=== PATIENT | male | born 1960 | race Caucasian/White ===

== ENCOUNTER 2021-10-15 07:19 | Inpatient (IN) | payer BC, SELFPAY ==
[2021-10-15] VITALS (8 sets, daily range): BP systolic 110–139; BP diastolic 70–82; PULSE 53–77; RESP 12–20; TEMP 36.1–37.2; O2SAT 94–99; BMI 27.8
--- NOTE | ~2021-10-15 | US_ITS ---
EXAMINATION: US VENOUS ULTRASOUND WITH DOPPLER LOWER EXTREMITY, BILATERAL CLINICAL INFORMATION: Rule out DVT. No venous thromboembolism. COMPARISON: None TECHNIQUE: Ultrasound of the deep veins is performed from the hip to the calf with compression sonography and color and pulse Doppler assessment. Spectral analysis with color-flow imaging is performed. FINDINGS: RIGHT: There is noncompressible, echogenic thrombus within the right femoral vein (proximal, middle, and distal segments) as well as the right popliteal and posterior tibial veins. The peroneal veins are not well seen due to the degree of capsular swelling. Blood flow is seen around the nonocclusive thrombus in these veins on color Doppler. The venous waveforms of around these areas of echogenic thrombus is blunted as a result. There is significant subcutaneous edema in the calf with soft tissue swelling. LEFT: There is normal venous compression and respiratory variation and augmented flow. The visualized common femoral vein, superficial femoral vein, profunda femoral vein, popliteal vein, and the trifurcation region shows no evidence of deep venous thrombosis. There is no significant popliteal fossa cyst. US/US venous duplex LE BI IMPRESSION: Acute nonocclusive deep vein thrombus in right lower extremity from the femoral vein through the posterior tibial vein. No evidence of DVT in the left lower extremity. This critical result was discussed by telephone with Dr Kruger on 10/15/2021 at 11:30 AM.
--- NOTE | ~2021-10-15 | XR_ITS ---
EXAMINATION: XR CHEST CLINICAL INFORMATION: Pulmonary embolism. Pleuritic chest pain. COMPARISON: Previous chest x-ray and chest CTA 10/15/2021 TECHNIQUE: Frontal view of the chest was obtained. FINDINGS: The cardiac and mediastinal contours are stable. There is bibasilar atelectasis or infiltrate. This appears increased from previous exams. There may be emphysematous change seen at the apices, particularly on the right. There is no pleural effusion or pneumothorax. There are degenerative changes of the spine. XR/XR chest 1V IMPRESSION: Increasing atelectasis or small infiltrates at the lung bases from 10/15/2021 exams.
--- NOTE | ~2021-10-15 | XR_ITS ---
EXAMINATION: XR CHEST CLINICAL INFORMATION: Right-sided pleuritic chest pain. COMPARISON: None TECHNIQUE: Frontal view of the chest was obtained. FINDINGS: Cardiac silhouette is normal in size. The lungs are adequately aerated. Subtle linear opacities of the right lung base, nonspecific. No pleural effusion. No pneumothorax. Degenerative changes of the spine. XR/XR chest 1V IMPRESSION: Subtle linear opacities of the right lung base are nonspecific but suspected to represent atelectasis. A subtle viral process is not entirely excluded. Unfortunately, there are no prior images available for comparison. Clinical correlation recommended.
--- NOTE | ~2021-10-15 | CT_ITS ---
EXAMINATION: CT ANGIOGRAM OF THE CHEST WITH AND WITHOUT CONTRAST (CT PULMONARY ANGIOGRAM FOR PE) CLINICAL INFORMATION: Reason for Exam rt pleuritic chest pain, positive d-diner COMPARISON: 10/15/2021 TECHNIQUE: Prior to contrast administration, noncontrast localization images were obtained. Subsequently, multidetector volumetric imaging was performed from the thoracic inlet to below the diaphragms following the administration of 71 mL Omnipaque 350 intravenous contrast. No contrast reaction reported Sagittal, coronal, and MIP oblique sagittal reformatted images were obtained on the CT workstation, uploaded to PACS, and reviewed. This CT examination was performed using dose optimization techniques as appropriate, variously including the following: *Automated exposure control *Adjustment of mA and/or kV according to patient size (this includes techniques or standardized protocols for targeted exams where dose is matched to indication/reason for exam; i.e. extremities or head) *Use of iterative reconstruction technique Total exam dose-length product 202 mGy-cm FINDINGS: QUALITY OF STUDY/CONTRAST BOLUS: Satisfactory. PULMONARY ARTERIES: There is a near occlusive thrombus within the pulmonary artery to the lateral basilar segment of the right lower lobe . No additional pulmonary emboli are identified on these images to the proximal subsegmental level. Main pulmonary arteries are normal in caliber. THORACIC AORTA: Calcific atherosclerosis is present in the thoracic aorta. No aneurysm or dissection. No intramural hematoma. LUNG: Centrilobular and paraseptal emphysema is present in both lungs, most notably at the upper lobes. There is developing groundglass consolidation in the anterolateral aspect of the right lower lobe which may correspond to a developing infarct. Dependent atelectasis is present in the lower lobes bilaterally. There is a partially calcified 8 mm pulmonary nodule in the right suprahilar region on image 73/218 of series 5 which may correspond to a granuloma or hamartoma. No follow-up is necessary. A 7 mm nodule along the left major fissure peripherally has an angular morphology and likely corresponds to a intrapulmonary lymph node. There is a similar 5 mm pulmonary nodule at the medial aspect of the right major fissure on image 125 of series 5, also likely corresponding to an intrapulmonary lymph node. No routine follow-up is necessary for perifissural nodules. PLEURA: Trace right pleural effusion. No pneumothorax MEDIASTINUM: RV of the ratio measures 1.18. There is mild flattening of the interventricular septum. Atherosclerotic calcifications are present at the coronary arteries. No mediastinal adenopathy. There are multiple prominent bilateral hilar lymph nodes measuring of 2.9 cm in short axis without appreciable adenopathy. No mediastinal adenopathy. CHEST WALL/AXILLA: No axillary or internal mammary lymphadenopathy. OSSEOUS STRUCTURES: No acute osseous abnormalities. Moderate multilevel degenerative spondylosis. UPPER ABDOMEN: Unremarkable. No reflux of contrast into the hepatic veins to suggest elevated right heart pressures. CT/CT angio chest PE protocol IMPRESSION: 1. Acute segmental pulmonary embolism in the right lower lobe. Subtle peripheral wedge-shaped consolidation in this region likely corresponds to a developing pulmonary infarct. Trace right pleural effusion. 2. RV/LV ratio of 1.18 with slight bowing of the interventricular septum as can be seen with right heart strain. No other findings heart strain. 3. Mild to moderate centrilobular and paraseptal pulmonary emphysema. VTE: positive This critical result was discussed by telephone with Dr Kruger on 10/15/2021 at 10:03 AM. The Fleischner criteria were followed for this study
--- NOTE | 2021-10-15 07:34 | ECG_ITS ---
Test Reason : CHEST PAIN Blood Pressure : / mmHG Vent. Rate : 062 BPM Atrial Rate : 365 BPM P-R Int : 000 ms QRS Dur : 082 ms QT Int : 434 ms P-R-T Axes : 049 018 044 degrees QTc Int : 440 ms Poor data quality Normal sinus rhythm No previous ECGs available Referred By: John Kruger Electronically Signed By:TRAE AHN MD
--- NOTE | 2021-10-15 07:35 | ED_ITS ---
HPI - General Adult General Chief complaint: General Medical Stated complaint: diff breathing Time Seen by Provider: 10/15/21 07:32 Source: patient Mode of arrival: ambulatory Limitations: no limitations History of Present Illness HPI narrative: This is a pleasant 61 years old patient presented to the emergency department with a chief complaint of a right pleuritic chest pain since yesterday. He can clearly localize the pain in the right lower ribs laterally get worse taking a deep breath. Denies any exertional symptoms diet for disease is a smoker Onset (ago): day(s) (1) Location: chest Radiation: other (pleuritic) Severity: moderate Quality: sharp Pain Consistency: constant Relieving factors: none Exacerbating factors: none Related Data Home Medications Medication Instructions Recorded Confirmed aspirin 325 mg tablet 325 mg PO DAILY 10/15/21 10/15/21 valsartan 160 1 tab PO BEDTIME 10/15/21 10/15/21 mg-hydrochlorothiazide 12.5 mg tablet Allergies Allergy/AdvReac Type Severity Reaction Status Date / Time No Known Allergies Allergy Verified 10/15/21 07:23 Review of Systems Verdana 4l Constitutional: Verdana 4d Constitutional: Verdana 4d Verdana 4d Reports no additional constitutional complaints Verdana 4l ENT: Verdana 4d Reports system reviewed and no additional complaints, except as documented Verdana 4l Cardiovascular: Verdana 4d Cardiovascular: Verdana 4d Verdana 4d Reports no additional cardiovascular complaints Verdana 4l Musculoskeletal: Verdana 4d Musculoskeletal: Verdana 4d Verdana 4d Reports no additional musculoskeletal complaints [facility] Past Medical History Medical History HTN (hypertension) Social History Social History Alcohol intake: current Patient Tobacco Use Status: Current everyday Tobacco user Use of substances other than those prescribed or required for medical reasons: No Advance Directives: No Advance Directives Information Provided: No Physical Exam Verdana 4l Vital Signs: Verdana 4d Verdana 4d Vital Signs: Verdana 4d Verdana 4Bd Last Vital Signs Verdana 4d Automatic Drilling Machine Operator New 4d Automatic Drilling Machine Operator New 4d Temp 98.5 F 10/15/21 12:32 Automatic Drilling Machine Operator New 4d Pulse 53 10/15/21 12:32 Automatic Drilling Machine Operator New 4d Resp 18 10/15/21 12:32 BP 128/70 10/15/21 12:32 Pulse Ox 96 10/15/21 12:32 BMI result Body Mass Index 27.8 Const: General: no acute distress Nutritional Appearance: well nourished Orientation/consciousness: patient oriented x3 HENMT: Head: Yes normal to inspection Face and sinus: Yes normal facial exam Mouth: Normal oral and palatal mucosa present Neck: Neck: Yes normal visual inspection Chest: Chest palpation & inspection: normal inspection of the chest Resp: Effort & Inspection: normal respiratory effort Cardio: Jugular venous distension: no JVD Rate: regular rate Rhythm: regular rhythm GI: Inspection: Yes normal to inspection Palpation (GI): Soft to palpation Au scultation: normal bowel sounds : General: Yes no CVA tenderness Back/Spine/Pelvis: Back: no CVA tenderness Neuro: General: patient oriented x3 Course Reevaluation(s) Reevaluation #1: CTA positive for Pe segmental, negative troponin, I did a bedside echo and adeno CA by echo right side heart strain. Clinically the patient is doing well no tachycardia no hypoxia. We will admit the patient for IV heparin I spoke with the hospitalist Dr Atkins Medical Decision Making Lab Data Result diagrams: 10/15/21 12:00 10/15/21 07:54 Labs: Lab Results 10/15/21 10/15/21 10/15/21 Range/Units 07:54 07:54 07:54 WBC 9.3 (4.8-10.8) X10*3/uL RBC 4.53 L (4.60-5.80) X10*6/uL Hgb 16.1 (14.0-18.0) g/dl Hct 45.7 (42.0-52.0) % MCV 100.9 H (80.0-98.0) fL MCH 35.5 H (27.0-33.0) pg MCHC 35.2 (31.0-36.0) g/dl RDW 16.3 H (11.0-16.0) % Plt Count 196 (160-400) X10*3/uL MPV 9.1 L (9.4-12.4) fL Immature Gran % (Auto) 0.3 (0.0-0.4) % Neut % (Auto) 74.1 H (45-73) % Lymph % (Auto) 16.0 L (20-40) % [place] % (Auto) 8.0 (2-11) % Eos % (Auto) 1.4 (0-4) % Baso % (Auto) 0.2 (0-2) % Lymph # (Auto) 1.5 (1.2-4.9) X10*3/uL [place] # (Auto) 0.7 (0.1-1.2) X10*3/uL Eos # (Auto) 0.1 (0.0-0.4) X10*3/uL Baso # (Auto) 0.0 (0.0-0.2) X10*3/uL Abs Immat Gran (auto) 0.03 (0.00-0.03) X10*3/uL Absolute Neuts (auto) 6.9 (2.0-8.3) x10*3/uL Absolute Nucleated RBC 0.000 (0.0-0.012) X10*3/uL Nucleated RBC % (auto) 0.0 (0.0-0.2) /100WBC PT 13.0 (9.9-13.0) SEC INR 1.1 (0.9-1.1) PTT (Heparin Protocol) 32.0 L (53-77.9) SEC D-Dimer High Sensitivty 407 NG/ML Sodium 139 (135-145) mmol/L Potassium 4.6 (3.3-5.1) mmol/L Chloride 107 (96-108) mmol/L Carbon Dioxide 22 (22-29) mmol/L Anion Gap 15 (12-20) BUN 12 (9-16) mg/dL Creatinine 0.95 (0.5-1.4) mg/dL Estim Creat Clear Calc 94.0 Estimated GFR > 60 Random Glucose 94 (60-115) mg/dL Calcium 9.2 (8.4-10.2) mg/dL Total Bilirubin 0.9 (0.0-1.0) mg/dL AST 14 (5-37) U/L ALT 13 (0-40) U/L Alkaline Phosphatase 70 (39-117) U/L Troponin I High Sens (<3.5-35.0) ng/L B-Natriuretic Peptide (<100) pg/mL Total Protein 6.7 (6.5-8.0) g/dL Albumin 3.7 (3.5-5.0) g/dL COVID-19 ([facility]) (Negative) COVID-19 Clin Com 10/15/21 10/15/21 Range/Units 07:54 07:54 WBC (4.8-10.8) X10*3/uL RBC (4.60-5.80) X10*6/uL Hgb (14.0-18.0) g/dl Hct (42.0-52.0) % MCV (80.0-98.0) fL MCH (27.0-33.0) pg MCHC (31.0-36.0) g/dl RDW (11.0-16.0) % Plt Count (160-400) X10*3/uL MPV (9.4-12.4) fL Immature Gran % (Auto) (0.0-0.4) % Neut % (Auto) (45-73) % Lymph % (Auto) (20-40) % [place] % (Auto) (2-11) % Eos % (Auto) (0-4) % Baso % (Auto) (0-2) % Lymph # (Auto) (1.2-4.9) X10*3/uL [place] # (Auto) (0.1-1.2) X10*3/uL Eos # (Auto) (0.0-0.4) X10*3/uL Baso # (Auto) (0.0-0.2) X10*3/uL Abs Immat Gran (auto) (0.00-0.03) X10*3/uL Absolute Neuts (auto) (2.0-8.3) x10*3/uL Absolute Nucleated RBC (0.0-0.012) X10*3/uL Nucleated RBC % (auto) (0.0-0.2) /100WBC PT (9.9-13.0) SEC INR (0.9-1.1) PTT (Heparin Protocol) (53-77.9) SEC D-Dimer High Sensitivty NG/ML Sodium (135-145) mmol/L Potassium (3.3-5.1) mmol/L Chloride (96-108) mmol/L Carbon Dioxide (22-29) mmol/L Anion Gap (12-20) BUN (9-16) mg/dL Creatinine (0.5-1.4) mg/dL Estim Creat Clear Calc Estimated GFR Random Glucose (60-115) mg/dL Calcium (8.4-10.2) mg/dL Total Bilirubin (0.0-1.0) mg/dL AST (5-37) U/L ALT (0-40) U/L Alkaline Phosphatase (39-117) U/L Troponin I High Sens 4.1 (<3.5-35.0) ng/L B-Natriuretic Peptide 24 (<100) pg/mL Total Protein (6.5-8.0) g/dL Albumin (3.5-5.0) g/dL COVID-19 ([facility]) Negative (Negative) COVID-19 Clin Com See Note Imaging Data CT scan - chest: Radiologist's impression: te osseous abnormalities. Moderate multilevel degenerative spondylosis.? UPPER ABDOMEN: Unremarkable.? No reflux of contrast into the hepatic veins to suggest elevated right heart pressures. CT/CT angio chest PE protocol IMPRESSION: 1. Acute segmental pulmonary embolism in the right lower lobe. Subtle peripheral wedge-shaped consolidation in this region likely corresponds to a developing pulmonary infarct. Trace right pleural effusion. 2. RV/LV ratio of 1.18 with slight bowing of the interventricular septum as can be seen with right heart strain. No other findings heart strain. 3. Mild to moderate centrilobular and paraseptal pulmonary emphysema. ? VTE: positive ? This critical result was discussed by telephone with? Dr Kruger on 10/15/2021 at 10:03 AM. ? The Fleischner criteria were followed for this study Dictated By: RENETTA ALEXIS MD Signed By: <Electronically signed by RENETTA ALEXIS MD in OV> 10/15/21 1005 ECG Data Pacemaker model: NSR [address]-t changes artifacts Discharge Plan Discharge Clinical Impression: Pulmonary embolism, Dvt femoral (deep venous thrombosis) Patient Disposition: Admitted As Inpatient
[2021-10-15 08:02] LABS: MANUAL DIFF FLAG NO
[2021-10-15 08:08] LABS: Basophils Percent Auto 0.2 % (0-2); Eosinophils Absolute Auto 0.1 X10*3/uL (0.0-0.4); Eosinophils Percent Auto 1.4 % (0-4); Hematocrit 45.7 % (42.0-52.0); Hemoglobin 16.1 g/dl (14.0-18.0); Imm Gran Abs Auto 0.03 X10*3/uL (0.00-0.03); Imm Gran Pct Auto 0.3 % (0.0-0.4); Lymphocytes Absolute Auto 1.5 X10*3/uL (1.2-4.9); Mean Corpuscular HGB Conc 35.2 g/dl (31.0-36.0); Mean Corpuscular Hemoglobin 35.5 pg (27.0-33.0); Mean Corpuscular Volume 100.9 fL (80.0-98.0); Mean Platelet Volume 9.1 fL (9.4-12.4); Monocytes Absolute Auto 0.7 X10*3/uL (0.1-1.2); Neutrophils Absolute Auto 6.9 x10*3/uL (2.0-8.3); Neutrophils Percent Auto 74.1 % (45-73); Platelet Count 196 X10*3/uL (160-400); Red Blood Count 4.53 X10*6/uL (4.60-5.80); Red Cell Distribution Width 16.3 % (11.0-16.0); White Blood Count 9.3 X10*3/uL (4.8-10.8)
[2021-10-15] MEDS: Ketorolac Tromethamine 30 MG/ML VIAL 15 MG IVPUSH (08:11)
[2021-10-15 08:21] LABS: Alanine Aminotransferase 13 U/L (0-40); Albumin Level 3.7 g/dL (3.5-5.0); Alkaline Phosphatase 70 U/L (39-117); Anion Gap 15 (12-20); Aspartate Amino Transferase 14 U/L (5-37); Bilirubin Total 0.9 mg/dL (0.0-1.0); Blood Urea Nitrogen 12 mg/dL (9-16); Calcium 9.2 mg/dL (8.4-10.2); Carbon Dioxide 22 mmol/L (22-29); Chloride 107 mmol/L (96-108); Estimated Glomerular Filt Rate > 60; Glucose Random 94 mg/dL (60-115); Potassium 4.6 mmol/L (3.3-5.1); Sodium 139 mmol/L (135-145); Total Protein 6.7 g/dL (6.5-8.0)
[2021-10-15 08:25] LABS: D Dimer High Sensitivity 407 NG/ML
[2021-10-15 08:27] LABS: Troponin-I High Sensitivity 4.1 ng/L (<3.5-35.0)
--- NOTE | 2021-10-15 08:34 | ECG_ITS ---
Test Reason : R RIB PAIN Blood Pressure : / mmHG Vent. Rate : 061 BPM Atrial Rate : 061 BPM P-R Int : 148 ms QRS Dur : 090 ms QT Int : 442 ms P-R-T Axes : 041 003 038 degrees QTc Int : 444 ms Artifact in tracing Normal sinus rhythm Normal ECG When compared with ECG of 15-OCT-2021 08:19, No significant changes seen Referred By: Devin Atkins Electronically Signed By:CHAPIS RUBIO
[2021-10-15 08:37] LABS: COVID-19 Test Negative (Negative)
--- NOTE | 2021-10-15 09:03 | PC.NURSE ---
pt reports 10/10 sharp right lower rib pain that worsens when he breaths. pt denies any cardiac history. no sob, no headache, no dizziness, no nausea/vomiting/diarrhea. 20 gauge iiv placed LAC, labs drawn, pain med given as documented. pt currently in CT
[2021-10-15] MEDS: iohexoL 350 MG/ML 100 ML INFUS..BTL IV (09:19)
[2021-10-15 10:38] LABS: INTERNATIONAL NORM RATIO 1.1 (0.9-1.1)
[2021-10-15 10:46] LABS: B Type Natriuretic Peptide 24 pg/mL (<100)
[2021-10-15] MEDS: Heparin Sodium,Porcine 5,000 UNIT/ML VIAL 7300 UNIT IVPUSH (10:53)
--- NOTE | 2021-10-15 11:01 | P.HPHOSP_ITS ---
History of Present Illness Date of Service: 10/15/21 Attending physician on admission: Devin Atkins Chief Complaint: chest pain 61-year-old male history of 45 year pack smoking, hypertension, history of pneumonia and followed by DVT 2 years ago in [facility]. He said when he got DVT he was managed outpatient for as per his PCP and vascular and was given six- month off anticoagulation and afterwards told to take aspirin daily. Yesterday he started having sudden right-sided chest pain pleuritic, denies any pressure, not radiating, constant pain -so decided to come to the hospital. denies any shortness of breath even with exertion currently. Denies any new complaint of abdominal pain or fever or chills or nausea or vomiting Denies any cough Denies any weakness or numbness. Lab imaging imaging reviewed: WBC 9.1, hemoglobin 16.1 platelets 196 BMP seems fine, troponin negative, BNP negative, bedside echo as per ED physician seems less likely right-sidedstrain. CT/CT angio chest PE protocol IMPRESSION: 1. Acute segmental pulmonary embolism in the right lower lobe. Subtle peripheral wedge-shaped consolidation in this region likely corresponds to a developing pulmonary infarct. Trace right pleural effusion. 2. RV/LV ratio of 1.18 with slight bowing of the interventricular septum as can be seen with right heart strain. No other findings heart strain. 3. Mild to moderate centrilobular and paraseptal pulmonary emphysema. ? VTE: positive ekg -seems nsr Review of Systems Verdana 4l Review of Systems: Verdana 4d as above. Verdana 4d Yes Verdana 4d all other systems are reviewed and are negative [facility] Medical History HTN (hypertension) Pertinent family history: he denies any family history of pulmonary embolism, any heart disease or hypertension. Or any hematological disease in his family. Social History Household Members: Significant Other Housing: House Do you presently have visiting nurse or other home services: No Alcohol intake: current Patient Tobacco Use Status: Current everyday Tobacco user Tobacco use type: Cigarette e-Cigarette/Vaping Use: Never Used Second Hand Smoke Exposure: No service: No Current occupational status: employed Meds Allergies Allergy/AdvReac Type Severity Reaction Status Date / Time No Known Allergies Allergy Verified 10/15/21 07:23 Active Medications: Current Medications Heparin Sodium (Porcine) (Heparin Sodium,Porcine 5,000 Unit/Ml Vial) 3,600 unit 40 unit/kg (3600 unit) IVPUSH PROTOCOL BOLUS PRN; Protocol PRN Reason: 40 unit/kg - Heparin Protocol Heparin Sodium (Porcine) (Heparin Sodium,Porcine 5,000 Unit/Ml Vial) 7,300 unit 80 unit/kg (7300 unit) IVPUSH PROTOCOL BOLUS PRN; Protocol PRN Reason: 80 unit/kg - Heparin Protocol Heparin Sodium/Sodium Chloride () 25,000 unit in 250 mls @ 0 mls/hr IVCONT .Q0M [facility]; Protocol Pharmacy Consult (Consult Rx Perform Med Rec) 1 each MISCELLANE ONCE PRN PRN Reason: Consult order Sodium Chloride (0.9 % Sodium Chloride Flush 3 Ml Syringe) 3 ml IVFLUSH QSHIFT [facility] Home Medications Medication Instructions Recorded Confirmed Last Taken Type aspirin 325 mg 325 mg PO DAILY 10/15/21 10/15/21 Unknown History tablet valsartan 160 1 tab PO BEDTIME 10/15/21 10/15/21 10/14/21 History mg-hydrochlorothi azide 12.5 mg tablet Physical Exam Verdana 4l Vital Signs and Narrative: Verdana 4d Verdana 4d Vital Signs: Verdana 4d Verdana 4Bd Last Vital Signs Verdana 4d Linemarker New 4d Linemarker New 4d Temp 97 F 10/15/21 07:23 Linemarker New 4d Pulse 70 10/15/21 08:00 Linemarker New 4d Resp 20 10/15/21 08:00 BP 121/75 10/15/21 08:00 Pulse Ox 98 10/15/21 08:00 BMI result Body Mass Index 27.8 physical exam: Appearance: Alert.? Oriented X3.? not in distress.? Eyes: Pupils equal, round and reactive to light.? Sclera nonicteric.? ENT: Pharynx normal.? Moist mucous membranes. cvs: rrr, [id number] , no murmur res: clear to auscultation ,no rhonchii or wheezing abd: no rebound or guarding ,nt, bs present. ext pulses present , no cyanosis . neuro: axo3 , nonfocal. Results Labs CBC and Chem 7: 10/17/21 05:51 10/17/21 05:51 Labs: Laboratory Results - last 24 hr 10/15/21 10/15/21 10/15/21 07:54 07:54 07:54 MCV 100.9 H MCH 35.5 H MCHC 35.2 RDW 16.3 H Plt Count 196 MPV 9.1 L Immature Gran % (Auto) 0.3 Neut % (Auto) 74.1 H Lymph % (Auto) 16.0 L [place] % (Auto) 8.0 Eos % (Auto) 1.4 Baso % (Auto) 0.2 Lymph # (Auto) 1.5 [place] # (Auto) 0.7 Eos # (Auto) 0.1 Baso # (Auto) 0.0 Abs Immat Gran (auto) 0.03 Absolute Neuts (auto) 6.9 Absolute Nucleated RBC 0.000 Nucleated RBC % (auto) 0.0 PT 13.0 INR 1.1 PTT (Heparin Protocol) 32.0 L D-Dimer High Sensitivty 407 Anion Gap 15 Estim Creat Clear Calc 94.0 Estimated GFR > 60 Random Glucose 94 Calcium 9.2 Total Bilirubin 0.9 AST 14 ALT 13 Alkaline Phosphatase 70 Troponin I High Sens B-Natriuretic Peptide Total Protein 6.7 Albumin 3.7 COVID-19 ([facility]) COVID-19 Clin Com 10/15/21 10/15/21 07:54 07:54 MCV MCH MCHC RDW Plt Count MPV Immature Gran % (Auto) Neut % (Auto) Lymph % (Auto) [place] % (Auto) Eos % (Auto) Baso % (Auto) Lymph # (Auto) [place] # (Auto) Eos # (Auto) Baso # (Auto) Abs Immat Gran (auto) Absolute Neuts (auto) Absolute Nucleated RBC Nucleated RBC % (auto) PT INR PTT (Heparin Protocol) D-Dimer High Sensitivty Anion Gap Estim Creat Clear Calc Estimated GFR Random Glucose Calcium Total Bilirubin AST ALT Alkaline Phosphatase Troponin I High Sens 4.1 B-Natriuretic Peptide 24 Total Protein Albumin COVID-19 ([facility]) Negative COVID-19 Clin Com See Note Imaging Radiologist's Impressions: Impressions Chest X-Ray 10/15/21 08:15 IMPRESSION: Subtle linear opacities of the right lung base are nonspecific but suspected to represent atelectasis. A subtle viral process is not entirely excluded. Unfortunately, there are no prior images available for comparison. Clinical correlation recommended. Chest CTA 10/15/21 09:19 IMPRESSION: 1. Acute segmental pulmonary embolism in the right lower lobe. Subtle peripheral wedge-shaped consolidation in this region likely corresponds to a developing pulmonary infarct. Trace right pleural effusion. 2. RV/LV ratio of 1.18 with slight bowing of the interventricular septum as can be seen with right heart strain. No other findings heart strain. 3. Mild to moderate centrilobular and paraseptal pulmonary emphysema. VTE: positive This critical result was discussed by telephone with Dr Kruger on 10/15/2021 at 10:03 AM. The Fleischner criteria were followed for this study Assessment and Plan (1) Hx of deep venous thrombosis: Status: Acute (2) Smoker: Status: Acute (3) Chest pain: Status: Acute Plan 61-year-old male smoker and hypertension history: came with right-sided pl euritic chest pain, Found to have pulmonary embolism. 1. Pulmonary embolism: as history of DVT right lower ext 2 years ago which was treated with anticoagulation for six-month. Troponin, BNP negative, EKG seems NSR, bedside echo by ED physician less likely right-sided strain. Venous duplex of lower extremities pending Continue IV heparin drip in ED, IV morphine for pain control, lidocaine patch. 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 2. Hypertension: Continue home medication medical reconciliation pending 3. smoker: nicotine patch added. DVT prophylaxis: SubQ heparin above management discussed with the patient in detail length and understand and in agreement with the above plan, time spent 70 minute. Patient full code. Quality Stroke Does the patient have a stroke diagnosis?: No VTE Prior VTE?: No VTE Risk Level:: Medical - moderate - high VTE Device Contraindication: N/A - Device Ordered VTE Drug Contraindication: N/A - Med Ordered
--- NOTE | 2021-10-15 11:02 | PHA.MEDREC ---
MED REC COMPLETE, NO ISSUES Pharmacy Consult ? Medication Reconciliation Pharmacy has completed the medication reconciliation.
[2021-10-15] MEDS: Heparin Sodium,Porcine/1/2NS 25,000 UNIT/250 ML IV.SOLN 12.7 UNIT IVCONT (11:03)
--- NOTE | 2021-10-15 11:24 | PC.NURSE ---
Heparin bolus given and Heparin drip started at 14u/kg/hr. Pt 13.0, INR 1.1. Repeat PTT due at 1705. cardiac catheterization technician at bedside. pt admitted, awaiting bed assignment. will continue to monitor.
[2021-10-15 12:07] LABS: Hemoglobin 15.2 g/dl (14.0-18.0); Mean Corpuscular HGB Conc 34.5 g/dl (31.0-36.0); Mean Corpuscular Volume 101.4 fL (80.0-98.0); Mean Platelet Volume 9.5 fL (9.4-12.4); Platelet Count 183 X10*3/uL (160-400); Red Blood Count 4.34 X10*6/uL (4.60-5.80); Red Cell Distribution Width 16.3 % (11.0-16.0); White Blood Count 10.9 X10*3/uL (4.8-10.8)
[2021-10-15] MEDS: Lidocaine 4 % Patch ADH..PATCH 1 PATCH TRANSDERMA (12:39)
[2021-10-15] MEDS: Nicotine 21 MG PATCH.TD24 TRANSDERMA (12:40)
[2021-10-15] MEDS: Morphine Sulfate 2 MG/ML CARTRIDGE IVPUSH ×2 (17:18→20:16)
[2021-10-15 17:42] LABS: PTT Heparin Drip 66.8 SEC (53-77.9)
--- NOTE | 2021-10-15 17:55 | PC.NURSE ---
repeat PTT 66.8. no dose change per protocol. pt alert and oriented, vss. awaiting bed assignment.
--- NOTE | 2021-10-15 20:02 | PC.NURSE ---
pt resting on stretcher in nad, breathing with ease on RA, vss. pt aaox4, reports R lateral chest pain, to be medicated with prn morphine when able per orders pt agreeable to plan for pain control and admission for further mgmt. heparin gtt infusing as documented, repeat ptt hd due at 2300 pt placed on bedside groundwater monitoring technician, nsr. stretcher low locked rails raised call fields within reach, urinal at bedside.
--- NOTE | 2021-10-15 20:09 | PC.NURSE ---
Report called to CHARLEE Brink in Overflow unit.
--- NOTE | 2021-10-15 20:47 | PM.HEMONCCN ---
Subjective - Subjective Chief complaint: pulmonary embolism Patient: new to practice Consult date: 10/15/21 Primary Care Provider: Sebastián Garduno MD HPI - Consult Narrative Reason for consult: pulmonary embolism Narrative: Antony Lopez is a 61 year old male with a history of right leg dvt in 1999 now presenting to the ER with pleuritic chest pain from a PE. He is on IV heparin infusio lelo present. Review of Systems - Constitutional Reports lack of energy - ENT Reports other - Cardiovascular Reports chest pain - Respiratory Reports dyspnea on exertion - Gastrointestinal Reports other - Genitourinary Genitourinary: Reports other - Integumentary/Breasts Skin/Breast: Reports other [facility] Medical History: Medical History (Last Reviewed 10/15/21 @ 11:09 by Devin Atkins MD) HTN (hypertension) Social History: Social History (Last Reviewed 10/15/21 @ 11:10 by Devin Atkins MD) Tobacco History: Patient Tobacco Use Status: Current everyday Tobacco Substance Use History: Use of substances other than those prescribed or required for medical reasons: No Advance Directives: Advance Directives: No Advance Directives Information Provided: No Home Medications and Allergies Current Medications: Current Medications Valsartan 160 mg/ (Hydrochlorothiazide 12.5 mg) 0 mg PO BEDTIME [facility] Heparin Sodium (Porcine) (Heparin Sodium,Porcine 5,000 Unit/Ml Vial) 3,600 unit 40 unit/kg (3600 unit) IVPUSH PROTOCOL BOLUS PRN; Protocol PRN Reason: 40 unit/kg - Heparin Protocol Heparin Sodium (Porcine) (Heparin Sodium,Porcine 5,000 Unit/Ml Vial) 7,300 unit 80 unit/kg (7300 unit) IVPUSH PROTOCOL BOLUS PRN; Protocol PRN Reason: 80 unit/kg - Heparin Protocol Heparin Sodium/Sodium Chloride () 25,000 unit in 250 mls @ 0 mls/hr IVCONT .Q0M [facility]; Protocol Last Titration: 10/15/21 17:00 Dose: 14 units/kg/hr, 12.7 mls/hr Documented by: Lidocaine (Lidocaine 4 % Patch Adh..Patch) 1 patch TRANSDERMA DAILY [facility]; Protocol Last Admin: 10/15/21 12:39 Dose: 1 patch Documented by: Morphine Sulfate (Morphine Sulfate 2 Mg/Ml Cartridge) 2 mg IVPUSH Q3H PRN; Protocol PRN Reason: Pain, Mild (Pain Scale 1-3) Last Admin: 10/15/21 20:16 Dose: 2 mg Documented by: Nicotine (Nicotine 21 Mg Patch.Td24) 21 mg TRANSDERMA DAILY [facility] Last Admin: 10/15/21 12:40 Dose: 21 mg Documented by: Pharmacy Consult (Consult Rx Perform Med Rec) 1 each MISCELLANE ONCE PRN PRN Reason: Consult order Sodium Chloride (0.9 % Sodium Chloride Flush 3 Ml Syringe) 3 ml IVFLUSH QSHIFT [facility] Last Admin: 10/15/21 17:13 Dose: Not Given Documented by: Home Medications Medication Instructions Recorded Confirmed Type aspirin 325 mg tablet 325 mg PO DAILY 10/15/21 10/15/21 History valsartan 160 1 tab PO BEDTIME 10/15/21 10/15/21 History mg-hydrochlorothiazide 12.5 mg tablet Allergies Allergy/AdvReac Type Severity Reaction Status Date / Time No Known Allergies Allergy Verified 10/15/21 07:23 Physical Exam Vital signs: Vital Signs Temp 99.0 F 10/15/21 19:58 Pulse 71 10/15/21 19:58 Resp 15 10/15/21 20:16 BP 139/82 10/15/21 19:58 Pulse Ox 94 10/15/21 19:58 Intake & Output 10/15/21 10/15/21 10/16/21 06:59 18:59 06:59 Intake Total 75.565 / 75.565 Balance 75.565 / 75.565 Intake: Intake, IV Amount 75.565 / 75.565 Heparin Sodium,Porcine/1/2NS 25 75.565 / 75.565 ,000 unit In 250 ml @ Per Protocol IVCONT .Q0M [facility] Rx#: [id number] Other: Weight 90.718 kg Weight 90.718 kg - Constitutional Present: no acute distress - Routine Neck Exam Present: supple - Routine Respiratory Exam Present: decreased breath sounds - Routine Cardiovascular Exam Cardiovascular: Present: RRR - Routine Abdominal Exam Present: diminished bowel sounds - Routine Skin Exam Present: intact - Routine Neurological Exam Present: alert, oriented X3 Hem/Onc Consult Result - Labs CBC & Chem 7: 10/15/21 12:00 10/15/21 07:54 Labs: Short CBC 10/15/21 10/15/21 Range/Units 07:54 12:00 WBC 9.3 10.9 H (4.8-10.8) X10*3/uL Hgb 16.1 15.2 (14.0-18.0) g/dl Hct 45.7 44.0 (42.0-52.0) % Plt Count 196 183 (160-400) X10*3/uL BMP 10/15/21 07:54 Sodium 139 Potassium 4.6 Chloride 107 Carbon Dioxide 22 BUN 12 Creatinine 0.95 Calcium 9.2 Liver Function 10/15/21 Range/Units 07:54 Total Bilirubin 0.9 (0.0-1.0) mg/dL AST 14 (5-37) U/L ALT 13 (0-40) U/L Alkaline Phosphatase 70 (39-117) U/L Albumin 3.7 (3.5-5.0) g/dL Assessment and Plan Patient Active problem list reviewed?: Yes (1) Pulmonary embolism Status: Acute Assessment and plan: He will need a thrombophilia evaluation and exterminator helper termite anticoagulation. Would continue heparin for 48h then Eliquis. He would benefit from a Hematology consultation. - Time Spent With Patient Time Spent with Patient (in minutes): 20
[2021-10-15] MEDS: Valsartan 160 MG, hydroCHLOROthiazide 12.5 MG PO (21:19)
--- NOTE | 2021-10-16 00:16 | PC.NURSE ---
Assumed care of pt Pt resting on stretcher with yes closed Breathing even and unlabored NAD Pt medicated per NOV Pt toelrated well SR on tele Will continue to monitor
[2021-10-16 02:02] LABS: PTT Heparin Drip 50.5 SEC (53-77.9)
[2021-10-16] MEDS: Morphine Sulfate 2 MG/ML CARTRIDGE IVPUSH (02:14)
[2021-10-16] MEDS: Heparin Sodium,Porcine 5,000 UNIT/ML VIAL 3600 UNIT IVPUSH (02:47)
--- NOTE | 2021-10-16 02:50 | PC.NURSE ---
Pt PTT 50.5. Per protocol, pt given 3600 cc bolus and drip increased by 2. Pt tolerating well Will continue to monitor
[2021-10-16 04:00] VITALS: BP 113/78; PULSE 64; RESP 13; TEMP 36.7
[2021-10-16 06:28] LABS: Hematocrit 43.8 % (42.0-52.0); Mean Corpuscular HGB Conc 34.2 g/dl (31.0-36.0); Mean Corpuscular Hemoglobin 34.8 pg (27.0-33.0); Mean Corpuscular Volume 101.6 fL (80.0-98.0); Platelet Count 176 X10*3/uL (160-400); Red Blood Count 4.31 X10*6/uL (4.60-5.80); Red Cell Distribution Width 16.2 % (11.0-16.0); White Blood Count 8.8 X10*3/uL (4.8-10.8)
[2021-10-16 06:44] LABS: INTERNATIONAL NORM RATIO 1.3 (0.9-1.1); Prothrombin Time 14.6 SEC (9.9-13.0)
[2021-10-16] MEDS: Heparin Sodium,Porcine/1/2NS 25,000 UNIT/250 ML IV.SOLN 16 UNIT IVCONT ×2 (07:25→23:45)
[2021-10-16] MEDS: Nicotine 21 MG PATCH.TD24 TRANSDERMA (08:22)
[2021-10-16] MEDS: Lidocaine 4 % Patch ADH..PATCH 1 PATCH TRANSDERMA (08:23)
--- NOTE | 2021-10-16 08:59 | P.PNIM_ITS ---
Subjective Subjective Date of Service: 10/16/21 Interval History: chest pain , right leg dvt, pulm embolism Review of Systems Chest pain seems to be improving, denies any shortness of breath or abdominal pain or nausea or vomiting. 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 Oriented X3.? not in distress.? Eyes: Pupils equal, round and reactive to light.? Sclera nonicteric.? ENT: Pharynx normal.? Moist mucous membranes. cvs: rrr, [id number] , no murmur res: clear to auscultation ,no rhonchii or wheezing abd: no rebound or guarding ,nt, bs present. ext pulses present , no cyanosis . neuro: axo3 , nonfocal. Objective Data Active Medications Valsartan 160 mg/ (Hydrochlorothiazide 12.5 mg) 0 mg PO BEDTIME [facility] Last Admin: 10/15/21 21:19 Dose: 2 tablet Documented by: CARISSA Heparin Sodium (Porcine) (Heparin Sodium,Porcine 5,000 Unit/Ml Vial) 3,600 unit 40 unit/kg (3600 unit) IVPUSH PROTOCOL BOLUS PRN; Protocol PRN Reason: 40 unit/kg - Heparin Protocol Last Admin: 10/16/21 02:47 Dose: 3,600 unit Documented by: CARISSA Heparin Sodium (Porcine) (Heparin Sodium,Porcine 5,000 Unit/Ml Vial) 7,300 unit 80 unit/kg (7300 unit) IVPUSH PROTOCOL BOLUS PRN; Protocol PRN Reason: 80 unit/kg - Heparin Protocol Heparin Sodium/Sodium Chloride () 25,000 unit in 250 mls @ 0 mls/hr IVCONT .Q0M [facility]; Protocol Last Admin: 10/16/21 07:25 Dose: 17.64 units/kg/hr, 16 mls/hr Documented by: CARISSA Cosigned by: MIKE Lidocaine (Lidocaine 4 % Patch Adh..Patch) 1 patch TRANSDERMA DAILY [facility]; Protocol Last Admin: 10/16/21 08:23 Dose: 1 patch Documented by: MIKE Morphine Sulfate (Morphine Sulfate 2 Mg/Ml Cartridge) 2 mg IVPUSH Q3H PRN; Protocol PRN Reason: Pain, Mild (Pain Scale 1-3) Last Admin: 10/16/21 02:14 Dose: 2 mg Documented by: CARISSA Nicotine (Nicotine 21 Mg Patch.Td24) 21 mg TRANSDERMA DAILY [facility] Last Admin: 10/16/21 08:22 Dose: 21 mg Documented by: MIKE Pharmacy Consult (Consult Rx Perform Med Rec) 1 each MISCELLANE ONCE PRN PRN Reason: Consult order Sodium Chloride (0.9 % Sodium Chloride Flush 3 Ml Syringe) 3 ml IVFLUSH QSHIFT [facility] Last Admin: 10/16/21 07:48 Dose: Not Given Documented by: MIKE Non-Admin Reason: IV Running Labs CBC & Chem 7: 10/16/21 05:43 10/15/21 07:54 Labs: Laboratory Results - last 24 hr 10/15/21 10/15/21 10/15/21 07:54 07:54 12:00 MCV 101.4 H MCH 35.0 H MCHC 34.5 RDW 16.3 H Plt Count 183 MPV 9.5 Absolute Nucleated RBC 0.000 Nucleated RBC % (auto) 0.0 PT 13.0 INR 1.1 PTT (Heparin Protocol) 32.0 L B-Natriuretic Peptide 24 10/15/21 10/15/21 10/16/21 16:56 22:58 05:43 MCV 101.6 H MCH 34.8 H MCHC 34.2 RDW 16.2 H Plt Count 176 MPV 10.0 Absolute Nucleated RBC 0.000 Nucleated RBC % (auto) 0.0 PT INR PTT (Heparin Protocol) 66.8 D 50.5 L D B-Natriuretic Peptide 10/16/21 05:43 MCV MCH MCHC RDW Plt Count MPV Absolute Nucleated RBC Nucleated RBC % (auto) PT 14.6 H INR 1.3 H PTT (Heparin Protocol) B-Natriuretic Peptide Assessment and Plan (1) Chest pain: Status: Acute (2) Dvt femoral (deep venous thrombosis): Status: Acute (3) Pulmonary embolism: Status: Acute Plan 61-year-old male? smoker and hypertension history: came with right-sided pleur itic chest pain, Found to have pulmonary embolism. 1.? Pulmonary embolism: ?as history of DVT right lower ext 2 years ago which was treated with anticoagulation for? six-month. ? Troponin, BNP negative, EKG seems NSR, bedside echo by ED physician? less likely right-sided strain. ? Venous duplex of lower extremities-Acute nonocclusive deep vein thrombus in right lower extremity from the femoral vein through the posterior tibial vein. Continue IV heparin drip in ED, IV morphine for pain control, lidocaine patch. hematology/oncology -iv heaprin for 48 hrs ,?monitor PT PTT as per protocol, then may switch to po eliquis. ? 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 2.? Hypertension: Continue home medication 3. smoker:? nicotine patch added. ?DVT prophylaxis:? SubQ heparin Quality Stroke Does the patient have a stroke diagnosis?: No VTE Prior VTE?: No VTE Risk Level:: Medical - moderate - high VTE Device Contraindication: N/A - Device Ordered VTE Drug Contraindication: N/A - Med Ordered
[2021-10-16 09:08] LABS: PTT Heparin Drip 74.9 SEC (53-77.9)
--- NOTE | 2021-10-16 11:00 | PC.NURSE ---
pt alert and oriented, vss. lidocaine and nicotine patch applied as documented. Heparin drip running at 16u/kg/h, PTT 74.9. No dose change per policy. Pt given breakfast. Dr. Atkins at bedside. will continue to monitor.
[2021-10-16 12:04] VITALS: BP 124/81; PULSE 62; RESP 12; TEMP 36.8; O2SAT 97
--- NOTE | 2021-10-16 12:52 | MHC.CM.PN ---
CM spoke with Patient over the phone at [phone]. Patient lives in a house with his Girlfriend/HCP/Tamara and he is functionally independent and working. Home/no services is the goal for dc and CM has initiated and will follow for dc planning. PCP is Dr. Sebastián Garduno and Patient has received J&J Covid vax X1.
[2021-10-16 13:06] VITALS: BP 137/78; PULSE 68; RESP 17; O2SAT 92
[2021-10-16 16:07] LABS: PTT Heparin Drip 55.5 SEC (53-77.9)
[2021-10-16 17:59] VITALS: BP 126/86; PULSE 70; RESP 17; TEMP 37.1; O2SAT 95
--- NOTE | 2021-10-16 18:05 | PC.NURSE ---
PTT at 1530 55.5 no dose change per protocol, Heparin drip remains at 16u/kg/h. Next PTT HD will be drawn tomorrow morning. Dr. Atkins made aware. pt awaiting bed assignment. vss.
[2021-10-16] MEDS: Valsartan 160 MG, hydroCHLOROthiazide 12.5 MG PO (20:48)
[2021-10-16 20:50] VITALS: BP 108/68; PULSE 72; RESP 15; TEMP 37; O2SAT 95
[2021-10-17 00:05] VITALS: BP 113/78; PULSE 66; RESP 20; TEMP 36.8; O2SAT 94
[2021-10-17 00:09] VITALS: BMI 27.8
[2021-10-17] MEDS: Morphine Sulfate 2 MG/ML CARTRIDGE IVPUSH (00:11)
[2021-10-17] MEDS: 0.9 % Sodium Chloride Flush 3 ML SYRINGE IVFLUSH ×2 (00:17→21:41)
[2021-10-17 04:00] VITALS: BP 127/80; PULSE 67; RESP 18; TEMP 36.8; O2SAT 92
[2021-10-17 06:00] LABS: Hematocrit 44.7 % (42.0-52.0); Hemoglobin 15.7 g/dl (14.0-18.0); Mean Corpuscular HGB Conc 35.1 g/dl (31.0-36.0); Mean Corpuscular Hemoglobin 35.5 pg (27.0-33.0); Mean Corpuscular Volume 101.1 fL (80.0-98.0); Mean Platelet Volume 9.3 fL (9.4-12.4); Platelet Count 172 X10*3/uL (160-400); Red Blood Count 4.42 X10*6/uL (4.60-5.80); Red Cell Distribution Width 16.1 % (11.0-16.0); White Blood Count 8.8 X10*3/uL (4.8-10.8)
[2021-10-17 06:13] LABS: PTT Heparin Drip 52.4 SEC (53-77.9)
[2021-10-17 06:20] LABS: Anion Gap 14 (12-20); Blood Urea Nitrogen 11 mg/dL (9-16); Carbon Dioxide 20 mmol/L (22-29); Chloride 107 mmol/L (96-108); Creatinine Clr Calc Pharmacy 111.7; Estimated Glomerular Filt Rate > 60; Glucose Random 99 mg/dL (60-115); Potassium 3.9 mmol/L (3.3-5.1); Sodium 137 mmol/L (135-145)
[2021-10-17] MEDS: Heparin Sodium,Porcine 5,000 UNIT/ML VIAL 3600 UNIT IVPUSH (06:26)
[2021-10-17 07:07] VITALS: BP 121/77; PULSE 64; RESP 18; TEMP 36.6; O2SAT 94
--- NOTE | 2021-10-17 07:30 | CA_ITS ---
Transthoracic Echocardiogram Patient (Last, First, Middle): Antony Lopez D Gender: Male Date of : 1960 Age: 61 Procedure Date: 10/17/2021 Procedure Type: Transthoracic Echocardiogram Location: [facility] [place] Height: 149.86 cm Weight: 90.27 kg BSA: 1.84 m2 Heart Rate: bpm BP: 127 / 80 mmHg Stagecraft Professor: EVERARDO Referring MD: Devin Atkins MD Symptoms: pulm embolism -r/o right heart strain Study Quality: Fair ECG Rhythm: Sinus Conclusions: - The left ventricular systolic function is low normal. The calculated ejection fraction is 53% by biplane method. - Mildly increased right ventricular cavity size. There is normal right ventricular systolic function. - No obvious valvular pathology seen on this study. - There is mild dilatation of the ascending aorta measuring 4.00 cm. Findings Left Ventricle Normal left ventricular cavity size. There is mildly increased left ventricular wall thickness. The left ventricular systolic function is low normal. The calculated ejection fraction is 53% by biplane method. There is no evidence of regional wall motion abnormalities. Diastolic function is normal for age. Right Ventricle Mildly increased right ventricular cavity size. There is normal right ventricular systolic function. Atria Both atria are normal in size. Aortic Valve There is a normal trileaflet aortic valve. There is no aortic valve stenosis. There is no aortic valve regurgitation. Mitral Valve The mitral valve appears normal. There is no mitral valve regurgitation. There is no mitral valve stenosis. Pulmonic Valve The pulmonic valve was not well visualized. Tricuspid Valve Normal tricuspid valve structure. There is trace tricuspid valve regurgitation. The pulmonary artery systolic pressure is normal. Great Vessels There is mild dilatation of the ascending aorta measuring 4.00 cm. Venous The inferior vena cava is normal in size and collapses greater than 50% with inspiration. Pericardium/Pleural There is no evidence of pericardial effusion. Prior Study Comparison No prior study available for comparison. Recommendations, Care & Conclusions No obvious valvular pathology seen on this study. Measurements 2D Linear Measurements IVSd: 1.12 0.6-0.9/0.6-1.0 cm LVIDd: 5.33 3.9-5.3/4.2-5.9 cm LVIDd Index: 2.90 2.4-3.2/2.2-3.1 cm/m2 LVIDs: 3.45 2.0-3.6 cm LVPWd: 1.17 0.7-1.1 cm Ao Root: 4.10 2.1-3.5 cm LA Diam: 3.70 2.7-3.8/3.0-4.0 cm LAIDs Index: 2.01 1.5-2.3 cm/m2 LV Mass: 302.67 67-162/88-224 g LV Mass Index: 164.50 43-95/49-115 g/m2 LVOT Diam: 2.40 3.0+(-)1.3 cm 2D Systolic Function EF 4C: 53.70 >55% EF 2C: 55.00 >55% EF BiP: 53.40 >55% Mitral Valve MV Pk E: 0.48 MV PK A: 0.70 MV Decel Time: 331.00 E/A: 0.70 E'Lateral: 11.50 E'Medial: 7.18 E/E' Med: 6.70 E/E' Lat: 4.20 PHT: 97.00 MVA PHT: 2.27 Decel [place]: 1.46 Aortic Valve AoV Pk Manuel: 1.48 AoV Mn Manuel: 1.04 AoV VTI: 0.27 AoV Pk Grad: 9.00 Aov Mn Grad: 5.00 SITA Cont.VTI: 3.14 LVOT LVOT Pk Manuel: 1.01 LVOT Mn Manuel: 0.66 LVOT VTI: 0.19 LVOT Pk Grad: 4.00 LVOT Mn Grad: 2.00 LVOT Diam: 2.40 LVOT Area: 4.52 Diastolic Function MV Pk E: 0.48 MV Pk A: 0.70 E/A: 0.70 E'Medial: 7.18 E/E' Med: 6.70 E' Laterial: 11.50 E/E' Lat: 4.20 Right Ventricle TAPSE (mm): 21.90 TVS' Manuel: 10.90 Tricuspid Valve TR Pk Manuel: 2.46 TR Pk Grad: 24.00 Great Vessels Aorta Ao Root-2D: 4.10 2.0-3.7 cm Ao Asc: 4.00 2.1-3.4 cm Updated in Other Vendor System with Status of Final Eric Guajardo MD electronically signed on 10/17/2021 4:30:09 PM with status of Final
[2021-10-17] MEDS: Nicotine 21 MG PATCH.TD24 TRANSDERMA (10:44)
[2021-10-17 10:50] VITALS: BP 138/76; PULSE 71; RESP 18; TEMP 36; O2SAT 93
--- NOTE | 2021-10-17 11:29 | P.CONGS_ITS ---
History of Present Illness Consult details Consult date: 10/17/21 Reason for consult: other (DVT with PE) Narrative: Very pleasant 61-year-old gentleman presented to the hospital 2 days prior with acute onset right lower extremity pain and shortness of breath. Upon workup he was found to have a DVT with right lower lobe pulmonary embolism. He was subsequently admitted and maintained on a heparin drip. He is now for vascular evaluation. Of note he has been seen 2 years prior at [facility] where it was discovered that he had a DVT and PE at that time. Was maintained on Eliquis for about 6 months. Primary care doctor at that point discontinued that. Two years prior it was a 1st event with no inciting factors. This time around there was no inciting factors as well. He has been fairly ambulatory in no other significant findings. At the time of my exam he was fairly comfortable in bed eager to be discharged. Review of Systems Verdana 4l Review of Systems: Yes all other systems are reviewed and Verdana 4d are negative Verdana 4l Constitutional: Verdana 4d Constitutional: Verdana 4d Verdana 4d Reports no additional constitutional complaints Verdana 4l ENT: Verdana 4d Reports Normal hearing present Verdana 4l Cardiovascular: Verdana 4d Cardiovascular: Verdana 4d Verdana 4d Denies chest pain, Denies chest pain at rest, Denies chest pain with activity and Denies pedal edema Verdana 4l Respiratory: Verdana 4d Verdana 4d Respiratory: Verdana 4d Denies cough Verdana 4l Gastrointestinal: Verdana 4d Gastrointestinal: Verdana 4d Verdana 4d Denies abdominal pain Verdana 4l Musculoskeletal: Verdana 4d Musculoskeletal: Verdana 4d Verdana 4d Denies abnormal gait, Denies muscle cramps and Denies radiating pain into limb Verdana 4l Integumentary/Breasts: Verdana 4d Skin/Breast: Verdana 4d Verdana 4d Denies skin ulcer and Denies wounds Verdana 4l Neurologic: Verdana 4d Reports Normal hearing present and Denies abnormal gait Verdana 4l Psychiatric: Verdana 4d Verdana 4d Psychiatric: Verdana 4d Reports no additional psychiatric complaints PMFSH Past Medical History Medical History HTN (hypertension) Social History Social History Household Members: Significant Other Housing: House Do you presently have visiting nurse or other home services: No Alcohol intake: current Patient Tobacco Use Status: Current everyday Tobacco user Tobacco use type: Cigarette e-Cigarette/Vaping Use: Never Used Second Hand Smoke Exposure: No service: No Current occupational status: employed Meds Allergies Allergy/AdvReac Type Severity Reaction Status Date / Time No Known Allergies Allergy Verified 10/15/21 07:23 Active Medications: Current Medications Valsartan 160 mg/ (Hydrochlorothiazide 12.5 mg) 0 mg PO BEDTIME [facility] Last Admin: 10/16/21 20:48 Dose: 1 tablet Documented by: Heparin Sodium (Porcine) (Heparin Sodium,Porcine 5,000 Unit/Ml Vial) 3,600 unit 40 unit/kg (3600 unit) IVPUSH PROTOCOL BOLUS PRN; Protocol PRN Reason: 40 unit/kg - Heparin Protocol Last Admin: 10/17/21 06:26 Dose: 3,600 unit Documented by: Heparin Sodium (Porcine) (Heparin Sodium,Porcine 5,000 Unit/Ml Vial) 7,300 unit 80 unit/kg (7300 unit) IVPUSH PROTOCOL BOLUS PRN; Protocol PRN Reason: 80 unit/kg - Heparin Protocol Heparin Sodium/Sodium Chloride () 25,000 unit in 250 mls @ 0 mls/hr IVCONT .Q0M [facility]; Protocol Last Titration: 10/17/21 06:27 Dose: 18 units/kg/hr, 16.33 mls/hr Documented by: Lidocaine (Lidocaine 4 % Patch Adh..Patch) 1 patch TRANSDERMA DAILY [facility]; Protocol Last Admin: 10/17/21 10:44 Dose: Not Given Documented by: Morphine Sulfate (Morphine Sulfate 2 Mg/Ml Cartridge) 2 mg IVPUSH Q3H PRN; Protocol PRN Reason: Pain, Mild (Pain Scale 1-3) Last Admin: 10/17/21 00:11 Dose: 2 mg Documented by: Nicotine (Nicotine 21 Mg Patch.Td24) 21 mg TRANSDERMA DAILY [facility] Last Admin: 10/17/21 10:44 Dose: 21 mg Documented by: Pharmacy Consult (Consult Rx Perform Med Rec) 1 each MISCELLANE ONCE PRN PRN Reason: Consult order Sodium Chloride (0.9 % Sodium Chloride Flush 3 Ml Syringe) 3 ml IVFLUSH QSHIFT [facility] Last Admin: 10/17/21 10:44 Dose: Not Given Documented by: Home Medications Medication Instructions Recorded Confirmed Last Taken Type aspirin 325 mg 325 mg PO DAILY 10/15/21 10/15/21 Unknown History tablet valsartan 160 1 tab PO BEDTIME 10/15/21 10/15/21 10/14/21 History mg-hydrochlorothi azide 12.5 mg tablet Physical Exam Verdana 4l Vital Signs: Verdana 4d Verdana 4d Vital Signs: Verdana 4d Verdana 4Bd Last Vital Signs Verdana 4d Gin Operator New 4d Gin Operator New 4d Temp 96.8 F 10/17/21 10:50 Gin Operator New 4d Pulse 71 10/17/21 10:50 Gin Operator New 4d Resp 18 10/17/21 10:50 BP 138/76 10/17/21 10:50 Pulse Ox 93 10/17/21 10:50 BMI result Body Mass Index 27.8 Const: General: cooperative, healthy appearing and comfortable Orientation/consciousness: oriented to person, oriented to place and oriented to time HENMT: Head: Yes normal to inspection Neck: Neck: Yes normal visual inspection Carotids: no bruits Chest: Chest palpation & inspection: normal inspection of the chest Resp: Effort & Inspection: normal respiratory effort and able to speak in complete sentences Auscultation: clear to auscultation bilaterally, no crackles, no rales, no rhonchi and no wheezes Cardio: Rate: regular rate Rhythm: regular rhythm Heart sounds: S1 normal heart sound present and S2 normal heart sound present Bruits: no carotid bruits Peripheral pulses: Peripheral pulses 2+ throughout GI: Inspection: Yes normal to inspection Skin: Wounds: no wounds Hair: normal Neuro: General: oriented to person, oriented to place and oriented to time Cranial nerves: Yes CN's II-XII intact bilaterally and Yes Normal hearing present Cognition (Neuro): normal cognition Motor exam (neuro): 5/5 motor strength present throughout Extrem: Other: venous exam: +2 edema right greater than left. No active ulcer General: No clubbing, No cyanosis and No edema Psych: Appearance: grossly normal Mental Status: mental status grossly normal Speech and movement: Normal speech and movement present Results Labs Result diagrams: 10/17/21 05:51 10/17/21 05:51 Labs: Abnormal lab results 10/17/21 10/17/21 10/17/21 Range/Units 05:50 05:51 05:51 RBC 4.42 L (4.60-5.80) X10*6/uL MCV 101.1 H (80.0-98.0) fL MCH 35.5 H (27.0-33.0) pg RDW 16.1 H (11.0-16.0) % MPV 9.3 L (9.4-12.4) fL PTT (Heparin Protocol) 52.4 L (53-77.9) SEC Carbon Dioxide 20 L (22-29) mmol/L Short CBC 10/17/21 Range/Units 05:51 WBC 8.8 (4.8-10.8) X10*3/uL Hgb 15.7 (14.0-18.0) g/dl Hct 44.7 (42.0-52.0) % Plt Count 172 (160-400) X10*3/uL BMP 10/17/21 05:51 Sodium 137 Potassium 3.9 Chloride 107 Carbon Dioxide 20 L BUN 11 Creatinine 0.80 Calcium 9.0 All other labs normal. Assessment and Plan (1) Dvt femoral (deep venous thrombosis): Status: Acute In short patient has a DVT with PE. This is a recurrent event with no inciting factors. He was not on anticoagulation at the time of this recurrent event. Would recommend long-term anticoagulation. I did review the images and it does not appear to be a candidate for thrombolysis, and does not require a filter at the current time. I would recommend follow-up with Hematology Oncology for hypercoagulable workup. I did appreciate covering Oncology doctor's note. He is stable from my perspective for discharge. I did discuss with him that if he is to undergo knee replacement he may require a retrievable IVC filter for the perioperative period. He will follow up with us on an as-needed basis. Would recommend outpatient follow-up with Hematology Oncology. (2) Pulmonary embolism: Status: Acute Procedures Date of Service Date of Service: 10/17/21
[2021-10-17 13:13] LABS: PTT Heparin Drip 63.3 SEC (53-77.9)
[2021-10-17] MEDS: Heparin Sodium,Porcine/1/2NS 25,000 UNIT/250 ML IV.SOLN 16.33 UNIT IVCONT (15:27)
[2021-10-17 15:31] VITALS: BP 114/63; PULSE 71; RESP 18; TEMP 36.6; O2SAT 99
--- NOTE | 2021-10-17 16:20 | P.PNIM_ITS ---
Subjective Subjective Date of Service: 10/17/21 Interval History: still has pleurtic chest pain , said earlier morning pain was increasing , feeling improivng over the afternoon Review of Systems Denies shortness of breath or fever or chills or weakness numbness Physical Exam Verdana 4l Vital Signs: Verdana 4d Verdana 4d Vital Signs: Verdana 4d Verdana 4Bd Last Vital Signs Verdana 4d Water Supervisor New 4d Water Supervisor New 4d Temp 97.8 F 10/17/21 15:31 Water Supervisor New 4d Pulse 71 10/17/21 15:31 Water Supervisor New 4d Resp 18 10/17/21 15:31 BP 114/63 10/17/21 15:31 Pulse Ox 99 10/17/21 15:31 BMI result Body Mass Index 27.8 Appearance: Alert.? Oriented X3.? not in distress.? Eyes: Pupils equal, round and reactive to light.? Sclera nonicteric.? ENT: Pharynx normal.? Moist mucous membranes. cvs: rrr, [id number] , no murmur res: clear to auscultation ,no rhonchii or wheezing has pleurtic pain abd: no rebound or guarding ,nt, bs present. ext pulses present , no cyanosis . neuro: axo3 , nonfocal. Objective Data Active Medications Valsartan 160 mg/ (Hydrochlorothiazide 12.5 mg) 0 mg PO BEDTIME [facility] Last Admin: 10/16/21 20:48 Dose: 1 tablet Documented by: FABRICE Heparin Sodium (Porcine) (Heparin Sodium,Porcine 5,000 Unit/Ml Vial) 3,600 unit 40 unit/kg (3600 unit) IVPUSH PROTOCOL BOLUS PRN; Protocol PRN Reason: 40 unit/kg - Heparin Protocol Last Admin: 10/17/21 06:26 Dose: 3,600 unit Documented by: HARESH Heparin Sodium (Porcine) (Heparin Sodium,Porcine 5,000 Unit/Ml Vial) 7,300 unit 80 unit/kg (7300 unit) IVPUSH PROTOCOL BOLUS PRN; Protocol PRN Reason: 80 unit/kg - Heparin Protocol Heparin Sodium/Sodium Chloride () 25,000 unit in 250 mls @ 0 mls/hr IVCONT .Q0M SEBAS; Protocol Last Admin: 10/17/21 15:27 Dose: 18 units/kg/hr, 16.33 mls/hr Documented by: CARLOS Cosigned by: BROJill Lidocaine (Lidocaine 4 % Patch Adh..Patch) 1 patch TRANSDERMA DAILY [facility]; Protocol Last Admin: 10/17/21 10:44 Dose: Not Given Documented by: CARLOS Non-Admin Reason: Patient Refused Morphine Sulfate (Morphine Sulfate 2 Mg/Ml Cartridge) 2 mg IVPUSH Q3H PRN; Protocol PRN Reason: Pain, Mild (Pain Scale 1-3) Last Admin: 10/17/21 00:11 Dose: 2 mg Documented by: HARESH Nicotine (Nicotine 21 Mg Patch.Td24) 21 mg TRANSDERMA DAILY [facility] Last Admin: 10/17/21 10:44 Dose: 21 mg Documented by: CARLOS Pharmacy Consult (Consult Rx Perform Med Rec) 1 each MISCELLANE ONCE PRN PRN Reason: Consult order Sodium Chloride (0.9 % Sodium Chloride Flush 3 Ml Syringe) 3 ml IVFLUSH QSHIFT [facility] Last Admin: 10/17/21 15:32 Dose: Not Given Documented by: CARLOS Non-Admin Reason: IV Running Labs CBC & Chem 7: 10/17/21 05:51 10/17/21 05:51 Labs: Laboratory Results - last 24 hr 10/17/21 10/17/21 10/17/21 05:50 05:51 05:51 MCV 101.1 H MCH 35.5 H MCHC 35.1 RDW 16.1 H Plt Count 172 MPV 9.3 L Absolute Nucleated RBC 0.000 Nucleated RBC % (auto) 0.0 PTT (Heparin Protocol) 52.4 L Anion Gap 14 Estim Creat Clear Calc 111.7 Estimated GFR > 60 Random Glucose 99 Calcium 9.0 10/17/21 12:51 MCV MCH MCHC RDW Plt Count MPV Absolute Nucleated RBC Nucleated RBC % (auto) PTT (Heparin Protocol) 63.3 D Anion Gap Estim Creat Clear Calc Estimated GFR Random Glucose Calcium Assessment and Plan (1) Dvt femoral (deep venous thrombosis): Status: Acute (2) Chest pain: Status: Acute Plan 61-year-old male? smoker and hypertension history: came with right-sided pleuritic chest pain, Found to have pulmonary embolism. 1.? Pulmonary embolism: ?as history of DVT right lower ext 2 years ago which was treated with anticoagulation for? six-month. ? Troponin, BNP negative, EKG seems NSR, bedside echo by ED physician? less likely right-sided strain. ? Venous duplex of lower extremities-Acute nonocclusive deep vein thrombus in right lower extremity from the femoral vein through the posterior tibial vein. Continue IV heparin drip in ED, IV morphine for pain control, lidocaine patch. hematology/oncology -iv heaprin for 48 hrs ,?monitor PT PTT as per protocol, then may switch to po eliquis. cxr -seems atelactsis Seen by vascular-patient is to follow-up with vascular outpatient. Discussed with Hematology-may need to switch po AC . If chest pain improves may go home in the morning. Patient echo is also pending/ Added incentive spirometry, chest physio 2.? Hypertension: Continue home medication 3. smoker:? nicotine patch added. ?DVT prophylaxis:? SubQ heparin Quality Stroke Does the patient have a stroke diagnosis?: No VTE Prior VTE?: No VTE Risk Level:: Medical - moderate - high VTE Device Contraindication: N/A - Device Ordered VTE Drug Contraindication: N/A - Med Ordered
--- NOTE | 2021-10-17 16:21 | MHC.CM.PN ---
Male 61 DX PE DP home no services with private transportation. No discharge today. A Pulmonary consult and Hematology consult have been ordered today.
[2021-10-17] MEDS: Apixaban 5 MG TABLET 10 MG PO (18:44)
[2021-10-17 19:22] VITALS: BP 131/71; PULSE 79; RESP 18; TEMP 36.4; O2SAT 91
[2021-10-17] MEDS: Valsartan 160 MG TABLET PO (21:40)
[2021-10-17] MEDS: hydroCHLOROthiazide 12.5 MG TABLET PO (21:40)
[2021-10-18] VITALS: BP 114/65; PULSE 70; RESP 18; TEMP 36.9; O2SAT 91
[2021-10-18 03:43] VITALS: BP 104/67; PULSE 72; RESP 18; TEMP 37.3; O2SAT 91
[2021-10-18] MEDS: Apixaban 5 MG TABLET 10 MG PO (06:01)
[2021-10-18 07:28] VITALS: BP 104/70; PULSE 66; RESP 20; TEMP 37; O2SAT 92
[2021-10-18] MEDS: 0.9 % Sodium Chloride Flush 3 ML SYRINGE IVFLUSH (09:53)
[2021-10-18 11:20] VITALS: BP 112/69; PULSE 61; RESP 20; TEMP 36.4; O2SAT 93
--- NOTE | 2021-10-18 15:09 | P.DS_ITS ---
DS: Providers Provider Date of Service: 10/18/21 Date of admission: 10/15/21 10:58 Primary care physician: Sebastián Garduno MD Consults: 10/15/21 11:00 Consult to Hematology / Oncology Routine Consulting Provider: [facility] Oncology/Hematology Reason for consultation: pulm embolsim Has provider been notified: No 10/16/21 08:58 Consult to Vascular Surgery Routine Consulting Provider: Kevon Smallwood Reason for consultation: acute dvt of right leg(nonocculsive extenssive/and pulm embolism Has provider been notified: No DS: Diagnosis Discharge Diagnosis (1) Dvt femoral (deep venous thrombosis): Status: Acute (2) Chest pain: Status: Acute DS: Summary Hospital Course Hospital Course: Admission HPi: Chief Complaint: chest pain ?61-year-old male history of 45 year pack smoking, hypertension, history of pneumonia and followed by DVT 2 years ago in [facility]. ? He said when he got DVT he was managed outpatient for as per? his PCP and vascular and was given six- month off anticoagulation and afterwards told to take aspirin daily. Yesterday he started having? sudden right-sided chest pain pleuritic, denies any pressure, not radiating, constant pain -so decided to come to the hospital. ?denies any shortness of breath even with exertion currently. ? Denies any new complaint of abdominal pain or fever or chills or nausea or vomiting Denies any cough Denies any weakness or numbness. ? Lab imaging imaging reviewed: ?WBC 9.1, hemoglobin 16.1 platelets 196 ?BMP seems fine, troponin negative, BNP negative, bedside echo as per ED physician seems less likely? right-sidedstrain. CT/CT angio chest PE protocol IMPRESSION: 1. Acute segmental pulmonary embolism in the right lower lobe. Subtle peripheral wedge-shaped consolidation in this region likely corresponds to a developing pulmonary infarct. Trace right pleural effusion. 2. RV/LV ratio of 1.18 with slight bowing of the interventricular septum as can be seen with right heart strain. No other findings heart strain. 3. Mild to moderate centrilobular and paraseptal pulmonary emphysema. ? VTE: positive Hospital course: evaluated face to face before dc ?Pulmonary embolism:has history of DVT right lower ext 2 years ago which was treated with anticoagulation for? six-month. He presented with chest pain and found to have PE on CTA. Venous duplex of lower extremities-Acute nonocclusive deep vein thrombus in right lower extremity from the femoral vein through the posterior tibial vein. He was on IV heparin and at time of discharge was transitioned to Eliquis. 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 Hypertension: Continue home medication 3. smoker:? nicotine patch provided and cessation discussed Final diagnoses: Pulmonary embolism DVT Smoking history HTN Time Spent with Patient Time attestation: Total time spent providing and/or coordinating discharge services: Discharge coordination time: Greater than 30 minutes Quality: Stroke Does the patient have a stroke diagnosis?: No Physical Exam Verdana 4l Vital Signs: Verdana 4d Verdana 4d Vital Signs: Verdana 4d Verdana 4Bd Last Vital Signs Verdana 4d Clinical Data Research New 4d Clinical Data Research New 4d Temp 97.5 F 10/18/21 11:20 Clinical Data Research New 4d Pulse 61 10/18/21 11:20 Clinical Data Research New 4d Resp 20 10/18/21 11:20 BP 112/69 10/18/21 11:20 Pulse Ox 93 10/18/21 11:20 BMI result Body Mass Index 27.8 Const: Other: General: AO X 3, no acute distress Resp: CTA bilateral CVS: S1,S2,RRR GI: +BS, NT, no distention Skin: No rash Neuro: motor grossly intact Psych: appropriate affect ? Discharge Plan Discharge Anticipated Discharge Date/Time: 10/18/21 14:59 Patient Disposition: Home, Self-Care Discharge Diagnosis: Pulmonary embolism Referrals: Sebastián Garduno MD [Primary Care Provider] - 1 Week Discharge Medications: New Eliquis 5 mg Tablet 10 mg PO Q12H 6 Days Qty: 24 0RF apixaban 5 mg tablet 5 mg PO BID Qty: 60 0RF Rx Instructions: Start taking on 7 Continued aspirin 325 mg Tablet 325 mg PO DAILY 0RF valsartan-hydrochlorothiazide 160-12.5 mg tablet 1 tab PO BEDTIME 0RF Discharge Orders: Discharge Order (Routine); Ordered 10/18/21 Ordered By: Rafael Layton Diet: advance to usual diet Activity on Discharge: As tolerated Stand Alone Forms: Patient Portal Discharge page Care Plan Goals: Full recovery from Pulmonary embolism Health Concerns: pulmonary embolism Plan of Treatment: Take Eliquis 2 tabs twice daily until 10/24/21, then from there take 1 tab twice daily Assessment: As above Discharge Date/Time: 10/18/21 16:00
--- NOTE | 2021-10-18 15:22 | MHC.CM.PN ---
IMM 10/18/21 Male 61 DX PE Is discharged to home today. A coupon for Eliquis was provided to the patient. He has arranged for transportation home.
[2021-10-18 15:47] VITALS: BP 125/78; PULSE 69; RESP 16; TEMP 36.8; O2SAT 94
== END 2021-10-18 16:00 | disposition home or self-care (01) | DRG 197 ==
LOC: HO.ED 10:27 → HO.EDOVER 11:04 → HO.IMC 10-16 22:46
PROVIDERS: Internal Medicine; Admitting Provider Internal Medicine; Emergency Provider Emergency Medicine; PCP Internal Medicine; Visit Provider Internal Medicine
DX: I82.411 Acute embolism and thrombosis of right femoral vein (principal); I26.99 Other pulmonary embolism without acute cor pulmonale; I82.441 Acute embolism and thrombosis of right tibial vein; F17.210 Nicotine dependence, cigarettes, uncomplicated; Z20.822 Contact with and (suspected) exposure to COVID-19; I10 Essential (primary) hypertension; Z71.6 Tobacco abuse counseling; Z86.718 Personal history of other venous thrombosis and embolism; Z87.01 Personal history of pneumonia (recurrent); Z79.01 Long term (current) use of anticoagulants; Z79.899 Other long term (current) drug therapy
CPT/HCPCS: 36415; 71045; 71275; 80048; 80053; 83880; 84484; 85025; 85027; 85379; 85610; 85730; 87635; 93005; 93306; 93970; 96365; 96375; 99285; J1885; J2270; Q9967

== ENCOUNTER 2021-12-08 08:49 | Outpatient (REF) | payer BC, SELFPAY ==
--- NOTE | ~2021-12-08 | XR_ITS ---
EXAMINATION: XR BOTH KNEES AP STANDING XR RIGHT KNEE, 2 VIEWS CLINICAL INFORMATION: Right knee pain. COMPARISON: None. TECHNIQUE: Standing AP view of both knees and lateral and sunrise views of the right knee. FINDINGS: RIGHT KNEE: Severe medial compartment joint space narrowing with inpnzoox-[id number]-cgcgkg lateral and moderate patellofemoral compartment joint space narrowing. Medial compartment bony remodeling with subchondral sclerosis. Prominent tricompartmental marginal osteophytes. No acute fracture or dislocation. No significant joint effusion. Prominent atherosclerotic calcifications. LEFT KNEE: [id number] medial compartment joint space narrowing. Small medial and lateral compartment marginal osteophytes. No osseous erosion. Soft tissue phleboliths. XR/XR knee RT 2V IMPRESSION: Right Knee: Prominent tricompartmental osteoarthritis, most severe within the medial compartment. Left Knee: Dqcz-[id number] medial as well as more mild lateral compartment osteoarthritis.
--- NOTE | ~2021-12-08 | XR_ITS ---
EXAMINATION: XR BOTH KNEES AP STANDING XR RIGHT KNEE, 2 VIEWS CLINICAL INFORMATION: Right knee pain. COMPARISON: None. TECHNIQUE: Standing AP view of both knees and lateral and sunrise views of the right knee. FINDINGS: RIGHT KNEE: Severe medial compartment joint space narrowing with unkpcrie-uq-ilevhv lateral and moderate patellofemoral compartment joint space narrowing. Medial compartment bony remodeling with subchondral sclerosis. Prominent tricompartmental marginal osteophytes. No acute fracture or dislocation. No significant joint effusion. Prominent atherosclerotic calcifications. LEFT KNEE: Wwvr-ed-uawfzjtw medial compartment joint space narrowing. Small medial and lateral compartment marginal osteophytes. No osseous erosion. Soft tissue phleboliths. XR/XR knee standing BI IMPRESSION: Right Knee: Prominent tricompartmental osteoarthritis, most severe within the medial compartment. Left Knee: Vcxx-ty-llatilfb medial as well as more mild lateral compartment osteoarthritis.
== END 2021-12-08 08:50 | disposition home or self-care (01) ==
LOC: HO.HOSX 08:49
PROVIDERS: Visit Provider Physician Assistant
DX: M17.11 Unilateral primary osteoarthritis, right knee (principal); M25.561 Pain in right knee; M75.80 Other shoulder lesions, unspecified shoulder
CPT/HCPCS: 73560; 73565

== ENCOUNTER 2022-02-28 15:00 | Outpatient (RCR) | payer BC, SELFPAY ==
--- NOTE | 2022-01-17 17:48 | MHC.PT.EP ---
[facility] [place] Office [place] Office [place] Office [address] Henna Kwon [address] [phone] F: [phone] F: [phone] F: [phone] F: [phone] Physical Therapy Plan of Care Date of Evaluation: Date of Surgery: Diagnosis: R RTC tendonitis. 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 Pt is deemed an appropriate candidate to receive skilled PT in order to address his physical limitations to improve his functional ability. Frequency and Duration: The patient will be seen 2 x / wk x 5 wks. Short Term Goals: Initiate HEP. improve baseline pain with activity to < 4/10, initial: 7/10. Fdc Goals: I with HEP. Improve R shoulder ER MMT by at least 1/2 MMT grade; initial 4/5. Pt will be able to dress pullovers without difficulty; initial 5/10 pain. Pt will be able to place object on high shelf consistently with managed Sx. Pt will no longer demonstrate intermittent pain with repeated R shoulder flexion. Treatment Plan: Modalities to reduce pain, spasms and effusion. Manual therapy to restore motion and function. Therapeutic exercise to improve strength and flexibility. Neuromuscular re-education for posture and balance. Therapeutic activities to return to functional activities of daily living. Electronically signed by: Scott Andrade PT. Please sign and return to therapist. Thank you for your referral.
--- NOTE | 2022-03-07 15:21 | MHC.PT.DC ---
[facility] [place] Office [place] Office [place] Office [address] Henna Kwon [address] [phone] F: [phone] F: [phone] F: [phone] F: [phone] Physical Therapy Discharge Report Diagnosis: R RTC tendonitis. Date of Surgery: Date of Evaluation: 01/17/22 Date of Discharge: 03/07/22 Treatments to Date: 6 Cancellations to Date: No Shows to Date: Discharge Status: Patient Elected to Stop Recommend MD Follow-up Discharge Summary: Pt reports although he feels the activities in physical therapy were reasonable he has not improve of his condition; reports the physical nature of his job has contributed to his difficulty recovering. Pt has made little progress towards his therapeutic goals, reports relatively unchanged pain and is in agreement with DC at this time as he awaits f/u from orthopedics. Electronically signed by: Scott Andrade PT. Please sign and return to therapist. Thank you for your referral.
== END 2022-03-07 15:22 | disposition home or self-care (01) ==
LOC: HO.PTCHIC 15:00
PROVIDERS: PCP Internal Medicine; Visit Provider Physician Assistant
DX: M75.80 Other shoulder lesions, unspecified shoulder (principal)
CPT/HCPCS: 97014; 97110; 97140; 97161

== ENCOUNTER 2022-04-07 11:14 | Outpatient (REF) | payer BC, SELFPAY ==
--- NOTE | ~2022-04-07 | XR_ITS ---
EXAMINATION: XR SHOULDER, RIGHT CLINICAL INFORMATION: Pain in right shoulder. COMPARISON: None TECHNIQUE: AP external rotation, Grashey, scapular Y, and axillary views of the right shoulder. FINDINGS: There is mild deformity right lateral clavicle from old injury. No visible acute fracture or dislocation seen. There is mild loss of glenohumeral and AC joint space with minimal periarticular spurring and anterior glenohumeral joint. No loose bodies or calcification seen. XR/XR shoulder RT min 2V IMPRESSION: Mild degenerative changes AC joint and right glenohumeral joint. Mild deformity lateral clavicle likely old injury. No fracture seen.
== END 2022-04-07 11:15 | disposition home or self-care (01) ==
LOC: HO.HOSX 11:14
PROVIDERS: Visit Provider Physician Assistant
DX: M25.511 Pain in right shoulder (principal)
CPT/HCPCS: 73030

== ENCOUNTER 2022-04-19 13:44 | Outpatient (REF) | payer BC, SELFPAY ==
--- NOTE | ~2022-04-19 | XR_ITS ---
EXAMINATION: PRE-MRI ORBITS. CLINICAL INFORMATION: History of foreign body in the eyes. COMPARISON: None TECHNIQUE: 3 views. FINDINGS: There are no radiopaque metallic foreign body seen in the orbits or in the visualized facial bones. There is moderate mucoperiosteal thickening right and mild thickening left maxillary sinuses. The frontal sinuses are hypoplastic. The ethmoid sinuses are clear. The mastoid sinuses are clear. No gross bony abnormality seen. XR/XR pre mri screening IMPRESSION: No radiopaque metallic foreign body seen in the orbits. There is bilateral maxillary sinus inflammatory changes.
--- NOTE | ~2022-04-19 | MR_ITS ---
EXAMINATION: MR SHOULDER WITHOUT CONTRAST, RIGHT CLINICAL INFORMATION: Right shoulder pain. COMPARISON: Radiographs 04/07/2022. TECHNIQUE: MRI of the shoulder without contrast was performed on a high-field scanner. FINDINGS: ROTATOR CUFF: Superficial to or within the superficial-most aspect of the distal supraspinatus tendon is a somewhat lobulated fluid collection measuring 0.9 x 0.4 x 1.7 cm. This may communicate with a longitudinal fluid collection/cyst within the superficial-most aspect of the supraspinatus tendon posteriorly. This extends medially approximately 5.3 cm. This implies the presence of an undersurface tendon tear, likely demonstrated as a small undersurface tear at the posterior insertion on axial image 9 and coronal image 7. The rotator cuff is otherwise intact. Mild subscapularis tendinosis. No muscle atrophy or fatty infiltration. BICEPS: Normal. CORACOACROMIAL ARCH: The undersurface of the acromion is curved with no subacromial spur. Moderate acromioclavicular osteoarthritis. Probable remote, healed fracture of the distal clavicle. LABRUM/CAPSULE: No definite labral tear. GLENOHUMERAL JOINT/MARROW: Cartilage thinning with areas of surface irregularity of the superomedial humeral head. No significant joint effusion. MR/MR shoulder RT wo con IMPRESSION: Probable small undersurface partial tear at the posterior aspect of the supraspinatus tendon insertion with an associated intratendinous/intramuscular cyst within the superficial-most aspect of the tendon and extending medially within the posterosuperior myotendinous junction. Moderate acromioclavicular osteoarthritis with probable remote, healed distal clavicle fracture. Mild glenohumeral osteoarthritis.
== END 2022-04-19 13:45 | disposition home or self-care (01) ==
LOC: HO.MRI 13:44
PROVIDERS: Visit Provider Physician Assistant
DX: M75.80 Other shoulder lesions, unspecified shoulder (principal)
CPT/HCPCS: 73221

== ENCOUNTER 2023-06-12 08:19 | Emergency (ER) | payer BC, SELFPAY ==
--- NOTE | ~2023-06-12 | XR_ITS ---
EXAMINATION: XR WRIST, LEFT XR HAND, LEFT CLINICAL INFORMATION: Swelling COMPARISON: None available. TECHNIQUE: PA, lateral, and oblique views of the left wrist and PA, lateral, and oblique views of the left hand FINDINGS: LEFT WRIST: The bones are intact. No fracture. Alignment is anatomic. There is marked degenerative change of the triscaphe joint. Degenerative change of the radiocarpal joint. There is marked degenerative change of the first carpometacarpal joint. There is degenerative change of the radioulnar joint. Negative ulnar variance. There is an ossific density, either representing an old fracture of the ulnar styloid or ununited ulnar styloid ossicle. There is marked medial marginal osteophyte formation extending off the ossific fragment and the medial distal ulna with associated soft tissue swelling, corresponding to the area of concern indicated by the patient. No erosions or soft tissue calcifications. LEFT HAND: The bones are intact. No fracture. Alignment is anatomic. There is marked degenerative change of the DIP joint of the index and middle finger and the PIP joint of the index finger. No erosions or soft tissue calcifications. XR/XR hand wrist LT IMPRESSION: 1. No acute fracture. 2. Degenerative changes as described. 3. Ossific density, either representing an old fracture of the ulnar styloid or ununited ulnar styloid ossicle. Marked marginal osteophyte formation extending off the ossific fragment and the medial distal ulna with associated soft tissue swelling corresponds to the area of concern indicated by the patient.
[2023-06-12 08:21] VITALS: BP 127/76; PULSE 71; RESP 18; TEMP 36.7; O2SAT 99; BMI 27.9
--- NOTE | 2023-06-12 08:35 | ED_ITS ---
HPI - Extremity Problem General Chief complaint: Extremity Problem Stated complaint: L wrist inj Time Seen by Provider: 06/12/23 08:34 Source: patient, family, RN notes reviewed and old records reviewed Mode of arrival: ambulatory History of Present Illness HPI Narrative: 62-year-old male with past medical history DVT/PE on Eliquis, osteoarthritis, prior left wrist fracture as child never properly fixed, presenting to the ED complaining of left hand/wrist swelling, erythema, and pain x4 days. Admits to hitting hand on jacket zipper 4 days ago, then woke up next morning with increasing pain and swelling to wrist radiating up forearm. Admits to taking a dose of p.o. pain medication last night which he had left over from prior surgery, states woke up this morning feeling mildly lightheaded, suspect from wrist pain/pain medication. Denies fever/chills. headache, neck/back pain, CP/SOB, numbness, tingling, weakness, history of gout. MD Complaint: extremity pain and extremity swelling Related Data Home Medications Medication Instructions Recorded Confirmed aspirin 325 mg tablet 325 mg PO DAILY 10/15/21 10/15/21 valsartan 160 1 tab PO BEDTIME 10/15/21 10/15/21 mg-hydrochlorothiazide 12.5 mg tablet Previous Rx's Medication Instructions Recorded apixaban 5 mg tablet 5 mg PO BID #60 tabs 10/18/21 hydrocodone 5 mg-acetaminophen 325 1 tab PO Q8H PRN pain, severe 3 06/12/23 mg tablet days #9 tabs prednisone 20 mg tablet 40 mg (2 x 20 mg) PO DAILY 5 days 06/12/23 #10 tabs Allergies Allergy/AdvReac Type Severity Reaction Status Date / Time No Known Allergies Allergy Verified 12/08/21 15:15 Review of Systems 2 Review of Systems: Constitutional: No Fever, No Chills ENT/Mouth: No Ear Pain, No Nasal Congestion,No sore throat, No Rhinorrhea, No Swallowing Difficulty Cardiovascular: No Chest Pain, No SOB Respiratory: No Cough, No Sputum, No Wheezing Gastrointestinal: No Nausea, No Vomiting, No Diarrhea, No Constipation, No Abdominal pain Musculoskeletal: + joint pain, No Myalgias, + Joint Swelling Skin: No Skin Lesions, No rash Neuro: No Weakness, No Numbness, No Paresthesias, + lightheaded Yes all other systems are reviewed and are negative Constitutional: Constitutional: Reports as per [facility] Past Medical History Attestation statement: The following information was validated with the patient. Source: old records reviewed Medical History Smoker Hx of deep venous thrombosis HTN (hypertension) Social History Social History Household Members: Significant Other Housing: House Do you presently have visiting nurse or other home services: No Alcohol intake: current Patient Tobacco Use Status: Current everyday Tobacco user Tobacco use type: Cigarette Cigarettes Per Day: 20 Years Smoked: 30 e-Cigarette/Vaping Use: Never Used Second Hand Smoke Exposure: No Advance Directives: No Advance Directives Information Provided: Yes service: No Current occupational status: employed Current occupation: [employer], rt hand Physical Exam 2 Vital Signs: Vital Signs: Last Vital Signs Temp 98.1 F 06/12/23 08:21 Pulse 71 06/12/23 08:21 Resp 18 06/12/23 08:21 BP 127/76 06/12/23 08:21 Pulse Ox 99 06/12/23 08:21 O2 Del Method Room Air 06/12/23 08:21 BMI result Body Mass Index 27.9 Const: General: cooperative, healthy appearing and no acute distress O rientation/consciousness: patient oriented x3 Limitations: no limitations HEENT: Head: Yes normal to inspection and Yes atraumatic Ears: hearing grossly normal bilaterally General nose exam: Normal external nose present Face and sinus: Yes normal facial exam Eyes: General: appearance normal, both eyes and all related structures EOM: EOMs intact bilaterally Neck: Neck: Yes normal visual inspection and Yes no meningeal signs Resp: Effort & Inspection: normal respiratory effort and no respiratory distress Cardio: Rate: regular rate Heart sounds: S1 normal heart sound present and S2 normal heart sound present Peripheral pulses: Peripheral pulses 2+ throughout Neuro: General: patient oriented x3, tone normal and no meningeal signs C ranial nerves: Yes CN's II-XII intact bilaterally Gait exam (Neuro): Normal gait present Extrem: Other: Please refer to images above. Left wrist with chronic deformity due to prior fracture. Overlying swelling noted with faint erythema and warmth. Diffusely tender to palpation. Neurovascularly intact. No fluctuance/induration. Limited ROM secondary to pain. No crepitus Course Course Course Narrative: XR hand wrist LT IMPRESSION: 1. No acute fracture. 2. Degenerative changes as described. 3. Ossific density, either representing an old fracture of the ulnar styloid or ununited ulnar styloid ossicle. Marked marginal osteophyte formation extending off the ossific fragment and the medial distal ulna with associated soft tissue swelling corresponds to the area of concern indicated by the patient. -1107--no leukocytosis. CRP mildly elevated. Uric acid mildly elevated > Due to erythema/slight warmth, and elevated uric acid will treat patient with prophylactic Keflex, short course of prednisone, and orthopedic follow-up. Unable to take NSAIDs due to Eliquis. Will sign with short course Lockwood Results discussed with patient including worrisome signs and symptoms and strict return precautions, and when to return to the emergency department. They verbalized understanding and feel safe for discharge at this time. Reevaluation(s) Reevaluation #1: I saw this patient and agree with physical and plan Time: 08:23 Medications Administered Discontinued Medications Generic Name Dose Route Start Last Admin Trade Name Tristan PRN Reason Stop Dose Admin Acetaminophen 650 mg 06/12/23 09:01 06/12/23 09:35 Acetaminophen 325 Mg Tablet PO 06/12/23 09:02 650 mg ONCE ONE Administration Oxycodone HCl 5 mg 06/12/23 09:01 06/12/23 09:35 Oxycodone Hcl Immed Release 5 Mg Tablet PO 06/12/23 09:02 5 mg ONCE ONE Administration Medical Decision Making Medical Decision Making [facility] Narrative: 62-year-old male with past medical history DVT/PE on Eliquis, osteoarthritis, prior left wrist fracture as child never properly fixed, presenting to the ED complaining of left hand/wrist swelling, erythema, and pain x4 days. On exam vital signs stable, NAD, nontoxic appearing, afebrile, physical exam as noted above, please refer to images. Left wrist with chronic deformity with overlying swelling/faint erythema and warmth. Limited ROM. Concern for reactive arthritis vs ?fx vs gout. Lower suspicion for septic joint/arthritis at this time. No evidence of abscess. Unlikely DVT. Suspect lightheadedness from pain and adverse reaction to pain medication, low suspicion for ACS/PE or ICH Plan: EKG, Labs, x-ray Please refer to course for remaining clinical decision making, interpretation of labs/imaging results, and discussions with consultants and/or family members. Differential Diagnosis Differential Diagnoses: The differential diagnosis associated with the presentation includes As above Admission/Observation Consideration of admission/observation: Escalation of care including admission/observation considered Lab Data MDM Lab Attestation statement: I reviewed the patient's lab results. 06/12/23 09:27 06/12/23 09:27 Labs: Lab Results 06/12/23 Range/Units 09:27 WBC 8.2 (4.8-10.8) X10*3/uL RBC 4.92 (4.60-5.80) X10*6/uL Hgb 16.2 (14.0-18.0) g/dl Hct 46.0 (42.0-52.0) % MCV 93.5 (80.0-98.0) fL MCH 32.9 (27.0-33.0) pg MCHC 35.2 (31.0-36.0) g/dl RDW 16.2 H (11.0-16.0) % Plt Count 192 (160-400) X10*3/uL MPV 8.9 L (9.4-12.4) fL Immature Gran % (Auto) 0.4 (0.0-0.4) % Neut % (Auto) 76.3 H (45-73) % Lymph % (Auto) 13.4 L (20-40) % Evangeline % (Auto) 9.2 (2-11) % Eos % (Auto) 0.5 (0-4) % Baso % (Auto) 0.2 (0-2) % Lymph # (Auto) 1.1 L (1.2-4.9) X10*3/uL Evangeline # (Auto) 0.8 (0.1-1.2) X10*3/uL Eos # (Auto) 0.0 (0.0-0.4) X10*3/uL Baso # (Auto) 0.0 (0.0-0.2) X10*3/uL Abs Immat Gran (auto) 0.03 (0.00-0.03) X10*3/uL Absolute Neuts (auto) 6.3 (2.0-8.3) x10*3/uL Absolute Nucleated RBC 0.000 (0.0-0.012) X10*3/uL Nucleated RBC % (auto) 0.0 (0.0-0.2) /100WBC ESR 6 (0-15) MM/HR Sodium 135 (135-145) mmol/L Potassium 3.5 (3.3-5.1) mmol/L Chloride 102 (96-108) mmol/L Carbon Dioxide 21 L (22-29) mmol/L Anion Gap 16 (12-20) BUN 7 L (9-16) mg/dL Creatinine 0.72 (0.5-1.4) mg/dL Estim Creat Clear Calc 122.5 Estimated GFR > 60 Random Glucose 104 (60-115) mg/dL Uric Acid 8.0 H (3.4-7.0) mg/dL Calcium 9.2 (8.4-10.2) mg/dL C-Reactive Protein 2.20 H (< or = 0.50) mg/dL Independent Interpretation I performed an independent interpretation of an: EKG and Plain X-Ray Radiology Impression Discussion of test interpretation with radiology: I have reviewed the radiologist's reading. External Record Review External record reviewed: Inpatient record, Office record, Outpatient record, Prior outpatient labs, Prior outpatient radiology, Primary care record and Outside ED record Tests considered The following testing was considered but not selected: As above Prescription Management I considered prescription management with: Pain Medication and Antibiotic Chronic Conditions Patient?s care impacted by: Other (DVT/PE on Eliquis) Discharge Plan Discharge Clinical Impression: Acute arthritis, Gout, Cellulitis Patient Disposition: Home, Self-Care Instructions: Cellulitis (DC), Osteoarthritis (DC), Gout (ED) Additional Instructions: Your blood work and x-ray are reassuring, you do have some elevation in her inflammatory markers We are treating you for possible early infection as well as gout Prednisone as a steroid please take as prescribed Lockwood was an opiate pain medication, take only when pain is severe for the next 3 days, do not drive, drink alcohol or operate machinery while taking new line please follow-up with orthopedic hand Prescriptions: New hydrocodone-acetaminophen 5-325 mg tablet 1 tab PO Q8H PRN (Reason: pain, severe) 3 Days Qty: 9 0RF Rx Instructions: Partial Fill upon patient request. prednisone 20 mg tablet 40 mg PO DAILY 5 Days Qty: 10 0RF No Action aspirin 325 mg Tablet 325 mg PO DAILY valsartan-hydrochlorothiazide 160-12.5 mg tablet 1 tab PO BEDTIME apixaban 5 mg tablet 5 mg PO BID Qty: 60 0RF Rx Instructions: Start taking on Febraury 7 [place] [facility] [place] [facility] [place] Group] - 1 week Sebastián Garduno MD [Primary Care Provider] - Interventions: ED Discharge Assessment Last Done: 06/12/23 11:28 Discharge Date/Time: 06/12/23 11:29
--- NOTE | 2023-06-12 09:19 | ECG_ITS ---
Test Reason : lightheaded Blood Pressure : / mmHG Vent. Rate : 063 BPM Atrial Rate : 063 BPM P-R Int : 154 ms QRS Dur : 090 ms QT Int : 430 ms P-R-T Axes : 040 015 052 degrees QTc Int : 440 ms Normal sinus rhythm Normal ECG When compared with ECG of 15-OCT-2021 08:34, T wave amplitude has increased in Anterior leads Referred By: Penny Holt Electronically Signed By:KAY MAYS
[2023-06-12 09:32] LABS: MANUAL DIFF FLAG NO
[2023-06-12 09:33] LABS: Basophils Percent Auto 0.2 % (0-2); Eosinophils Percent Auto 0.5 % (0-4); Hemoglobin 16.2 g/dl (14.0-18.0); Imm Gran Abs Auto 0.03 X10*3/uL (0.00-0.03); Imm Gran Pct Auto 0.4 % (0.0-0.4); Lymphocytes Absolute Auto 1.1 X10*3/uL (1.2-4.9); Lymphocytes Percent Auto 13.4 % (20-40); Mean Corpuscular HGB Conc 35.2 g/dl (31.0-36.0); Mean Corpuscular Hemoglobin 32.9 pg (27.0-33.0); Mean Corpuscular Volume 93.5 fL (80.0-98.0); Mean Platelet Volume 8.9 fL (9.4-12.4); Monocytes Absolute Auto 0.8 X10*3/uL (0.1-1.2); Monocytes Percent Auto 9.2 % (2-11); Neutrophils Absolute Auto 6.3 x10*3/uL (2.0-8.3); Neutrophils Percent Auto 76.3 % (45-73); Platelet Count 192 X10*3/uL (160-400); Red Blood Count 4.92 X10*6/uL (4.60-5.80); Red Cell Distribution Width 16.2 % (11.0-16.0); White Blood Count 8.2 X10*3/uL (4.8-10.8)
[2023-06-12] MEDS: Acetaminophen 325 MG TABLET 650 MG PO (09:35)
[2023-06-12] MEDS: oxyCODONE HCl Immed Release 5 MG TABLET PO (09:35)
[2023-06-12 09:49] LABS: Anion Gap 16 (12-20); Blood Urea Nitrogen 7 mg/dL (9-16); Calcium 9.2 mg/dL (8.4-10.2); Carbon Dioxide 21 mmol/L (22-29); Chloride 102 mmol/L (96-108); Creatinine Clr Calc Pharmacy 122.5; Estimated Glomerular Filt Rate > 60; Glucose Random 104 mg/dL (60-115); Potassium 3.5 mmol/L (3.3-5.1); Sodium 135 mmol/L (135-145)
[2023-06-12 11:07] LABS: Erythrocyte Sedimentation Rate 6 MM/HR (0-15)
== END 2023-06-12 11:29 | disposition home or self-care (01) ==
PROVIDERS: Physician Assistant; Emergency Provider Emergency Medicine; PCP Internal Medicine
DX: M10.032 Idiopathic gout, left wrist (principal); L03.114 Cellulitis of left upper limb; R42 Dizziness and giddiness; F17.210 Nicotine dependence, cigarettes, uncomplicated; Z71.6 Tobacco abuse counseling; Z79.899 Other long term (current) drug therapy
CPT/HCPCS: 36415; 73110; 73130; 80048; 84550; 85025; 85652; 86140; 93005; 99283